=== PATIENT | male | born 1945 | race Asian ===

== ENCOUNTER 2016-05-12 13:19 | Emergency (ER) | payer MEDICAID ==
[~2016-05-12] VITALS: Ht 172.7 cm; Wt 83.0 kg
[~2016-05-12 13:19] MED LIST: ASPI-867 PO; DIPH25CA83 PO; DOCU-138 PO; TAMS-11 PO
[2016-05-12 13:51] LABS: BASOPHILS % 0.8 % (0.0-2.0); EOSINOPHILS % 7.8 % (0.0-5.0); HEMATOCRIT. 35.1 % (42.0-52.0); HEMOGLOBIN. 11.9 g/dL (14.0-18.0); LYMPHOCYTES % 17.2 % (20.0-50.0); MEAN CORPUSCULAR HEMOGLOBIN 30.2 pg (28.0-32.0); MEAN CORPUSCULAR VOLUME 88.8 fL (80.0-94.0); MONOCYTES % 6.3 % (2.0-8.0); NEUTROPHILS % 67.9 % (40.0-76.0); RED BLOOD CELL COUNT 3.95 mill/uL (4.7-6.1); RED CELL DISTRIBUTION WIDTH 14.1 % (11.6-14.6)
[2016-05-12 13:55] LABS: DIFFERENTIAL COMMENT 1; WHITE BLOOD COUNT 9.3 x1000/uL (4.5-11.0)
[2016-05-12 14:03] LABS: ACETAMINOPHEN < 2 ug/mL (10-30); ALANINE AMINOTRANSFERASE 22 IU/L (13-61); ALBUMIN 3.8 g/dL (3.4-5.0); ANION GAP 15; CALCIUM 9.5 mg/dL (8.5-10.1); CARBON DIOXIDE 32 mEq/L (21-32); CHLORIDE 92 mEq/L (98-107); ETHANOL BLOOD < 10 mg/dL; INDEX HEMOLYSI 1 (1-3); INDEX ICTERIC 1 (1-4); INDEX LIPEMIC 1 (1-3); UREA NITROGEN BLOOD 27 mg/dL (7-21); eGFR 14 mL/min (>60)
[2016-05-12 14:22] LABS: ADD RBC MORPHOLOGY YES
[2016-05-12 15:11] LABS: PLATELET ESTIMATE NORMAL
[2016-05-12 17:08] VITALS: BP 131/74
== END 2016-05-12 21:45 | disposition home or self-care (01) ==
LOC: ER 13:29
DX: I12.0 Hypertensive chronic kidney disease with stage 5 chronic kidney disease or end stage renal disease (principal); F32.9 Major depressive disorder, single episode, unspecified; N18.6 End stage renal disease; I50.9 Heart failure, unspecified; E11.9 Type 2 diabetes mellitus without complications; J44.9 Chronic obstructive pulmonary disease, unspecified; K21.9 Gastro-esophageal reflux disease without esophagitis; D63.1 Anemia in chronic kidney disease; N40.0 Benign prostatic hyperplasia without lower urinary tract symptoms; Z86.73 Personal history of transient ischemic attack (TIA), and cerebral infarction without residual deficits; Z99.2 Dependence on renal dialysis
CPT/HCPCS: 36415; 80053; 80307; 80329; 82962; 83880; 85025; 99284; G0482